=== PATIENT | female | born 1980 | race Two or more races ===

== ENCOUNTER 2017-10-19 12:27 | Emergency (ER) | payer OTHER ==
[~2017-10-19] VITALS: Ht 160 cm; Wt 52.2 kg
[~2017-10-19 12:27] MED LIST: CIPRO500 MG PO; KETO10TA2 PO; SYNTHROID50 MCG PO; TESSALON PERLE100 MG PO; TYLENOL-CODEINE1 TAB PO; URIN D.S. TABLE1 TAB PO; ZITHROMAX TRI-500 MG PO; ZYRTEC10 MG PO
== END 2017-10-19 14:59 | disposition home or self-care (01) ==
LOC: ER 12:27
DX: S92.412A Displaced fracture of proximal phalanx of left great toe, initial encounter for closed fracture (principal); W18.39XA Other fall on same level, initial encounter; Y93.89 Activity, other specified; Y92.091 Bathroom in other non-institutional residence as the place of occurrence of the external cause; Y99.8 Other external cause status